=== PATIENT | female | born 1965 | race African-American/Black ===

== ENCOUNTER → 2016-09-09 | Outpatient (CLI) | payer OTHER ==
[2015-06-27 15:45] VITALS: BP 174/65
[~2016-09-09] MED LIST: ASPI81TA2 PO; BISA5TAB6 PO; GADOBUTROL 10 MMOL/10 ML VIAL IV ONE; LOSA25TA4 PO; METO25TA4 PO
--- NOTE | 2016-09-09 12:43 | RAD ---
MR BRAIN WITH CONTRAST HISTORY: RECENT SEIZURES OVER LAST MONTH WITHOUT AURA, LEFT FRONTAL AND TEMPORAL PRESSURE, NO SX HX, NO PRIORS, 10ML GADAVIST COMPARISON: TECHNIQUE: Axial diffusion-weighted imaging was obtained. Additional axial FLAIR, and axial T2 weighted images were obtained. Sagittal and axial T1-weighted imaging was obtained prior to the administration of intravenous contrast material. Additional sagittal, axial, and coronal T1-weighted imaging was obtained after the administration of gadolinium based intravenous contrast material. FINDINGS: There is a single very small focus of FLAIR signal hyperintensity in the anterior limb of the right internal capsule. No other signal abnormality is identified in the brain parenchyma. This is best appreciated on coronal FLAIR image 18 and less conspicuously on axial flair images 14 and 15. No abnormal enhancement identified. No restricted diffusion to indicate an acute infarct. No evidence of acute intracranial hemorrhage. No extra-axial fluid collections are identified. There is no mass effect or midline shift. Ventricular size is appropriate. Basal cisterns are patent. Visualized flow voids are normal in course, caliber, and signal. Globes and orbits are unremarkable. Paranasal sinuses and mastoid air cells are clear. IMPRESSION: Unremarkable MRI brain report from a single focus of FLAIR signal hyperintensity in the anterior limb of right internal capsule. This is a nonspecific lesion demonstrates no enhancement. This could be clinically quiescent but consider follow-up to document stability or change. Electronically signed by: Fer Marie MD (09/09/2016 12:40 PM)
--- NOTE | 2016-09-10 22:01 | EEG ---
DATE OF SERVICE: 09/09/2016 EEG NUMBER [id number] OBJECTIVE: This is a 50-year-old -[place] female patient with history of seizure. EEG was requested to evaluate the seizure activity. METHODS: Twenty electrodes were applied according to the international 10-20 electrode placement system. EKG monitoring, hyperventilation, intermittent photic stimulation, monopolar and bipolar montages are routinely utilized. The record was obtained on a digital system with video monitoring. FINDINGS: 1. Background: The patient was recorded in the awake, drowsy and sleep states. The overall background amplitude is 10-25 microvolts. A posterior dominant rhythm of 8-10 Hz is observed. 2. Abnormalities: No specific epileptiform discharge or electrographic seizure is seen. No focal or diffuse slowing. 3. Activation: Hyperventilation was performed with good efforts and normal response. Intermittent photic stimulation was performed with photic driving. No specific epileptiform discharge or electrographic seizure induced by hyperventilation or intermittent photic stimulation. IMPRESSION: This EEG is a normal study for the awake, drowsy and sleep states. No focal, lateralizing, specific epileptiform discharge or electrographic seizure is seen; however, a normal EEG does not rule out seizure. MAIDA PELAYO MD DR: DILIP/vinay JOB#: [id number] / [id number]
== END | disposition home or self-care (01) ==
LOC: MRI 10:20
PROVIDERS: ATTEND Psychiatry & Neurology Neurology
DX: G93.2 Benign intracranial hypertension (principal); R56.9 Unspecified convulsions
CPT/HCPCS: 70553; 95816; A9585